=== PATIENT | female | born 1935 | race Caucasian/White ===

== ENCOUNTER 2016-08-28 11:55 | Inpatient (IN) | payer MEDICARE, OTHER ==
[~2016-08-28] VITALS: Ht 160 cm; Wt 108.4 kg
[~2016-08-28 11:55] MED LIST: ALLOPURINOL100 MG PO; ANTACID GELATI1 EACH PO; ASPIRIN325 MG PO; CARTIA XT120 MG PO; CLARITIN10 M2 PO; COUMADIN2 MG PO; COUMADIN2.5 MG PO; DEMADEX20 MG PO; DILTIAZEM 24HR240 MG PO; DYAZIDE 37.5-251 EA PO; FLUOXETINE HCL20 MG PO; GABAPENTIN300 MG PO; IRON325 M1 PO; MAGNESIUM200 MG PO; METOPROLOL SUCC50 MG PO; NITROGLYCERIN0.4 MG SL; PERCOCET 5-3251 EACH PO; POTASSIUM CHLO10 MEQ PO; POTASSIUM GLUC500 MG PO; RANITIDINE HCL150 MG PO; SLOW-MAG71.5 MG PO; SODIUM BICARBO650 MG PO; TRAMADOL HCL50 MG PO; TRIAMCINOLONE A15 G1 TOP
[2016-08-28] MEDS ORDERED: VITAMIN D1000 UNIT PO (16:21)
[2016-08-28] MEDS ORDERED: IRON325 M1 PO (16:22)
[2016-08-28] MEDS ORDERED: POTASSIUM CHLO10 ME2 PO (16:29)
--- NOTE | 2016-08-28 16:30 | NUR ---
MED REC COMPLETE WITH [facility] REFILL HISTORY AND PATIENT INTERVIEW. THERE ARE A FEW MEDICATIONS WHICH HAVE CHANGED SINCE THE PRESCRIPTION WAS ORIGINALLY WRITTEN SUCH METOPROLOL, PATIENT ONLY TAKE 25 MG BID.
--- NOTE | 2016-08-28 16:37 | NUR ---
80 YEAR OLD FEMALE ARRIVED TO ROOM 130 VIA STRETCHER FROM ER. PT TRANSFERRED TO BED WITH 3 PERSON ASSIST. VITAL SIGNS TAKEN & PT WEIGHED PER BED. NORMAL SALINE STARTED AT 75 ML/HR. PHARMACY IN TO TALK TO PT ABOUT HER HOME MEDS. ASSESSMENT COMPLTED.
--- NOTE | 2016-08-28 17:55 | NUR ---
PT ATE 100% OF DINNER. PT WITH HOB ELEVATED, WATCHING TV. C/O OF HEADACHE.
--- NOTE | 2016-08-28 17:59 | NUR ---
MEDICATED WITH TYLENOL 650 MG PO FOR C/O OF HEAD/NECK PAIN.
--- NOTE | 2016-08-28 19:45 | NUR ---
REPORT RECIEVED FROM VIDHYA CHAVEZ AT 1900. PT CURRENTLY RESTING ASLEEP. RR EVEN AND UNLABORED, HOB. HR 79, RR20.
--- NOTE | 2016-08-28 22:26 | NUR ---
PT UP TO BSC, 1 PERSON ASSIST. UNSTEADY ON FEET REPORTS FEELING 'VERTIGO', CHRONIC PER PT. VOIDED 250ML DARK YELLOW URINE. PT REPORTS CHRONIC 'ODOR DOWN THERE', REFERRING TO VAGINAL AREA. REQUESTED BABY POWDER, EXPLAINED THAT NOT SUPPLIED. PT SON VISITING AT BEDSIDE.
--- NOTE | 2016-08-29 03:59 | NUR ---
PT UP TO BSC 1 PERSON ASSIST. INC URINE IN ATTENDS AND VOIDED TO COMMODE. NEW ATTENDS PLACED ON PT AND PERICARE PROVIDED.
--- NOTE | 2016-08-29 07:01 | NUR ---
PT UP TO BSC WITH LOOSE BROWN STOOL. 2 WHITE/YELLOW COLORED PILLS NOTED IN STOOL. PT ALSO VOIDED AN UNMEASURED AMOUNT. ASSISTED PT UP TO CHAIR. CALL IN REACH. C/O OF GAS PAIN.
--- NOTE | 2016-08-29 07:30 | NUR ---
BEDSIDE REPORT RECIEVED. PATIENT IS SITTING IN CHAIR. IS W/O C/O. IVF PATENT TO RIGHT WRIST SITE.
--- NOTE | 2016-08-29 08:30 | NUR ---
SITTING UP IN CHAIR EATING BREAKFAST. ASSESSMENT COMPLETE.
--- NOTE | 2016-08-29 10:45 | NUR ---
ORDERS RECIEVED TO MAKE PATIENT AN ADMISSION. TRANSFER ORDERS RECIEVED. IS ON TELE #8. C/O GAS PAIN, PATIENT STATES THIS IS NORMAL FOR HER.
--- NOTE | 2016-08-29 11:20 | NUR ---
SERJIO-SELTZEW GIVEN FOR GAS DISCOMFORT.
--- NOTE | 2016-08-29 11:30 | NUR ---
up to commode to EXPELL URINE WITH SM AMOUNT OF LIQUID STOOL. SPONGE BATH GIVEN.
--- NOTE | 2016-08-29 12:00 | NUR ---
REFUSING LUNCH. ASSESSMENT DONE.
--- NOTE | 2016-08-29 14:30 | NUR ---
AMBULATED IN HALLWAY TO ROOM 128 FROM ROOM 130. TOLERATED AMBULATION FAIR. THEN BACK TO BED.
--- NOTE | 2016-08-29 16:57 | NUR ---
has been getting up to commode with assist. INC OF URINE. IS ABLE TO VOID TO COMMODE AT TIMES. HAS LIQ STOOLS EACH TIME UP TO COMMODE. USES WALKER FOR TRANSFERS.
--- NOTE | 2016-08-29 17:35 | NUR ---
OOB TO CHAIR FOR DINNER.
--- NOTE | 2016-08-29 17:40 | NUR ---
AMBULATED IN HALLWAY, USED WALKER. IS FAIRLY STEADY ON FEET. TOLERATED WALK WELL.
--- NOTE | 2016-08-29 19:49 | EKG ---
[facility] [address] [facility] [place] [address] Signed Atrial fibrillation Left axis deviation Low voltage QRS Cannot rule out Anterior infarct , age undetermined Abnormal ECG No previous ECGs available Confirmed by JODI PEREIRA MD ([id number]) on 08/29/2016 7:48:54 PM Electronically Signed By: JODI PEREIRA MD 08/29/16 1949 PATIENT NAME: DEYA HAILE Electrocardiogram DATE OF : 33 PHYSICIAN: JODI PEREIRA MD REPORT #: [id number] REPORT IS CONFIDENTIAL AND NOT TO BE RELEASED WITHOUT AUTHORIZATION
--- NOTE | 2016-08-29 19:50 | EKG ---
[facility] [address] [facility] [place] [address] Signed Atrial fibrillation Left axis deviation Low voltage QRS Cannot rule out Anterior infarct (cited on or before 28-AUG-2016) Abnormal ECG When compared with ECG of 28-AUG-2016 14:55, (Unconfirmed) Nonspecific T wave abnormality no longer evident in Inferior leads Nonspecific T wave abnormality now evident in Lateral leads Confirmed by JODI PEREIRA MD ([id number]) on 08/29/2016 7:50:05 PM Electronically Signed By: JODI PEREIRA MD 08/29/16 1950 PATIENT NAME: DEYA HAILE Electrocardiogram DATE OF : 33 PHYSICIAN: JODI PEREIRA MD REPORT #: [id number] REPORT IS CONFIDENTIAL AND NOT TO BE RELEASED WITHOUT AUTHORIZATION
--- NOTE | 2016-08-29 20:00 | NUR ---
Pt arrived via reclained chair top room 113 in MS, no c/o cp ot leg pain, tele#[address], afib pattern as per ICU report. Pt cooperative with assessment, legs elevated, uses walker and one assist to get up, call light at bedside.
--- NOTE | 2016-08-29 20:24 | NUR ---
TO MED SURG PER CHAIR, REPORT TO NIYAH CHAVEZ.
--- NOTE | 2016-08-29 21:30 | NUR ---
Pt up to brp using one assist and walker, voided, back to bed, tolerated well.
--- NOTE | 2016-08-29 21:46 | NUR ---
pt declined to take sodium bicarb
--- NOTE | 2016-08-29 22:32 | NUR ---
Pt resting, eyes closed, no c/o cp at this time, tele#[address]
--- NOTE | 2016-08-30 02:52 | NUR ---
Up to brp, one assist and walker, voided and had semi liquid bm, attend changed, back to bed, tolerated well, tele #[address], no c/o CP or sob
--- NOTE | 2016-08-30 04:58 | NUR ---
PT TRANSFERRED TO M/S FLOOR FROM ICU LAST NIGHT. TELE#[address], COTNINUES ON AFIB, IRREGULAR HEART RATE, NO C/O SOB OR RESP DISTRESS. ON ROOM AIR. SL INTACT, PT USES ONE PERSON ASSIST AND WALKER TO WALK TO BRP, TOLERATES WELL, C/O BILAT LEG WEAKNESS BUT NO FURTHER EPISODES OF HER LEGS "GIVING OUT" ON HER. 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 ABLE TO STATE AND ASKS TO GET UP TO BRP. USES ATTENS. DECLINED TO TAKE NA BICARB MED AT HS. CURRENTLY IN BED, HOB ELEVATGED TO HER COMFORT, EYES CLOSED, RESTING.
--- NOTE | 2016-08-30 07:30 | NUR ---
PT UP TO BATHROOM WITH STANDBY ASSIST AND FRONT WHEEL WALKER, PATIENT STABLE ON FEET. SITTING UP IN CHAIR FOR BREAKFAST. DENIES ANY REQUESTS. CALL LIGHT AND WATER WITHIN REACH.
--- NOTE | 2016-08-30 07:46 | NUR ---
REPORT RECIEVED FROM SCOTT LINDER. PT AWAKE AND AWAITING BREAKFAST. STATES SHE SLEPT REALLY WELL AND IS FEELING GOOD THIS MORNING. LOOKING FORWARD TO PHYS. THER. SHE WOULD LIKE TO GO HOME.
--- NOTE | 2016-08-30 08:17 | NUR ---
PT IS EATING BREAKFAST , WILL ASK @1000 ABOUT SHOWER.
--- NOTE | 2016-08-30 08:25 | NUR ---
PT UP IN CHAIR EATING BREAKFST. HAS BEEN TO RESTROOM FOR BM. WOULD LIKE TO GO HOME TODAY. FEELS LIKE SHE IS AT HER BASELINE.
--- NOTE | 2016-08-30 08:59 | NUR ---
PT ABOUT TO WORK WITH PHYS. THER. STATES THAT HTE LAST TIME SHE TOOK POTASSIUM TABS THEY CAME OUT WHOLE IN STOOL.
--- NOTE | 2016-08-30 09:31 | NUR ---
ORHTOSTATIC VITALS DONE AND SHOWN TO DRDanae PT TOLERATED WELL. SLIGHT ELEVATION IN HR AND BP.
--- NOTE | 2016-08-30 09:56 | NUR ---
PT IS SITTING UP IN CHAIR WATCHING TV. PT IS UNSURE ABOUT SHOWERING B/C SHE MAY POSSIBLY DC TO HOME. WILL CHECK AGAIN AFTER SHE IS SEEN BY DOCTOR.
--- NOTE | 2016-08-30 12:05 | NUR ---
PT EATING LUNCH. DENIES NEEDS. HAS STATED MULTIPLE TIMES SHE WOULD LIKE TO GO HOME.
--- NOTE | 2016-08-30 13:57 | NUR ---
PT APPEARS TO BE SLEEPING. AUDIBLY SNORING.
--- NOTE | 2016-08-30 14:25 | NUR ---
TOOK PT VITALS. PT IS NOW RESTING IN BED WITH EYES CLOSED RESPERATION EVEN.PT DID NOT NEED ANYTHING AT THE MOMENT
--- NOTE | 2016-08-30 15:41 | NUR ---
WOKE PT TO TAKE AFTERNOON MEDS. AGAIN REFUSED TO TAKE NA BICARB. STATES SHE WILL ONLY TAKE ONE DOSE AND PREFERS TO TAKE IT AT HS BECAUSE IT GIVES HER AN UPSET STOMACH.
--- NOTE | 2016-08-30 17:35 | NUR ---
PT AMBULATED WITH PHYS. THER. TELE DC'D. TOLERATING REG. DIET. LUNGS CLEAR. BT ACTIVE. DENIES CONCERNS.
--- NOTE | 2016-08-30 18:07 | NUR ---
PT IS SITIING UP IN CHAIR JUST FINISHED DINNER. PT ASKED FOR MORE HOT WATER FOR TEA
--- NOTE | 2016-08-30 20:55 | NUR ---
GAVE SHOWER, PM CARE, CHANGED LINEN.
--- NOTE | 2016-08-30 21:00 | NUR ---
RECEIVED REPORT AROUND 1900. FOUND PT UP IN CHAIR WITH FAMILY MEMBERS PRESENT. V/S ARE WNL AT THIS TIME, PT STATES THAT SHE IS FEELING STRONGER. ALL LOBES ARE CLEAR, ABD SOUNDS ARE PRESENT, OVERALL STRENGTH IS GOOD. PT HAS +1 EDEMA IN BOTH ANKLES.
--- NOTE | 2016-08-31 00:49 | NUR ---
PT IS SLEEPING AT THIS TIME.
--- NOTE | 2016-08-31 02:25 | NUR ---
ASSISTED PT TO BATHROOM. PT COMPLAINED OF A HEADACHE. 650MG OF PO TYLENOL WERE GIVEN. PT IS BACK IN BED.
--- NOTE | 2016-08-31 04:41 | NUR ---
PT HAD AN UNEVENTFUL NIGHT. PT RECEIVED 650MG PO TYLENOL FOR A HEADACHE. NO NEW ISSUES NOTED THIS SHIFT SO FAR FOR THIS PT.
[2016-08-31] MEDS ORDERED: CEPHALEXIN500 MG PO (08:47)
--- NOTE | 2016-08-31 09:02 | NUR ---
RECIEVED BEDSIDE REPORT FROM SCOTT APPIAH. PT SLEEPING WELL DURING REPORT. PT UP FOR BREAKFAST, ATE SMALL AMOUNT. REPORTS A CAFFINE HEADACHE, DRINKING COFFEE NOW. PT REPORTS NO OTHER PAIN.
--- NOTE | 2016-08-31 11:43 | NUR ---
PT LEFT THE UNIT VIA WHEELCHAIR WITH PHOTORESIST CONTACT PRINTER AND SON. PT VERBALIZED UNDERSTANDING OF DISCHARGE INSTRUCTIONS RE: UTI, BLADDER HEALTH, AND HOME MEDICATIONS. VSS.
== END 2016-08-31 11:39 | disposition home or self-care (01) | DRG 872 ==
LOC: ED 11:55 → CCU 11:56 → MS 08-29 10:35
PROVIDERS: ADMIT Internal Medicine
DX: A41.51 Sepsis due to Escherichia coli [E. coli] (principal); N39.0 Urinary tract infection, site not specified; N18.4 Chronic kidney disease, stage 4 (severe); Z68.41 Body mass index [BMI] 40.0-44.9, adult; M62.81 Muscle weakness (generalized); I48.2 Chronic atrial fibrillation; I12.9 Hypertensive chronic kidney disease with stage 1 through stage 4 chronic kidney disease, or unspecified chronic kidney disease; K21.9 Gastro-esophageal reflux disease without esophagitis; F39 Unspecified mood [affective] disorder; G89.4 Chronic pain syndrome; E66.9 Obesity, unspecified; E86.0 Dehydration; E55.9 Vitamin D deficiency, unspecified; W18.30XA Fall on same level, unspecified, initial encounter; Z79.01 Long term (current) use of anticoagulants; Z79.899 Other long term (current) drug therapy; Y92.009 Unspecified place in unspecified non-institutional (private) residence as the place of occurrence of the external cause
CPT/HCPCS: 36415; 80048; 80053; 81001; 83605; 83735; 84100; 84484; 85025; 85610; 87040; 87077; 87088; 87186; 93005; 93010; 97161; J0696; J7030; J7040

== ENCOUNTER 2018-03-05 16:40 | Emergency (ER) | payer MEDICARE ==
[~2018-03-05] VITALS: Ht 160 cm; Wt 108.4 kg
[~2018-03-05 16:40] MED LIST changes: +CEPHALEXIN500 MG PO; +POTASSIUM CHLO10 ME2 PO; +VITAMIN D1000 UNIT PO
[2018-03-05] MEDS ORDERED: SLOW-MAG71.5 MG PO (17:42)
[2018-03-05] MEDS ORDERED: ACETAMINOPHEN-1 EAC1 PO (17:43)
== END 2018-03-05 22:20 | disposition short-term general hospital (02) ==
LOC: ED 16:40
DX: A41.9 Sepsis, unspecified organism (principal); R65.20 Severe sepsis without septic shock; N17.9 Acute kidney failure, unspecified; N13.6 Pyonephrosis; I48.91 Unspecified atrial fibrillation; D64.9 Anemia, unspecified; I12.9 Hypertensive chronic kidney disease with stage 1 through stage 4 chronic kidney disease, or unspecified chronic kidney disease; N18.9 Chronic kidney disease, unspecified; F32.9 Major depressive disorder, single episode, unspecified; K21.9 Gastro-esophageal reflux disease without esophagitis; E66.9 Obesity, unspecified; Z85.828 Personal history of other malignant neoplasm of skin; Z90.710 Acquired absence of both cervix and uterus; Z79.899 Other long term (current) drug therapy; Z79.01 Long term (current) use of anticoagulants
CPT/HCPCS: 74176; 80053; 81001; 83605; 83690; 85025; 85610; 87077; 87088; 87186; 96361; 96374; 96375; 99285-25; J0696; J2270; J2405; J3480; J7030; J7040